=== PATIENT | male | born 1935 | race Caucasian/White ===

== ENCOUNTER 2016-09-30 03:18 | Inpatient (IN) | payer OTHER, MEDICARE ==
[~2016-09-30] VITALS: Ht 177.8 cm; Wt 79.4 kg
[~2016-09-30 03:18] MED LIST: ACCUPRIL40 M1 PO; AMLODIPINE BESYL5 M1 PO; CARDURA4 M1 PO; OMEPRAZOLE20 M3 PO; SOTALOL120 MG PO; SOTALOL80 M1 PO
--- NOTE | 2016-09-30 16:22 | Admission Core Measures ---
See Addendum Admission Meds I reviewed the following Meds: Current Medications Sig/Olinda Start time Last Medication Dose Stop Time Status Admin Acetaminophen 975 MG ONCE 09/30 0000 NR (Tylenol) 09/30 2358 Amlodipine Besylate 5 MG DAILY 10/01 1000 UNVr (Norvasc) Cefazolin Sodium 2,000 MG ONCE 09/30 0000 NR (Kefzol-Ancef Inj) 09/30 2358 Doxazosin Mesylate 4 MG DAILY 10/01 1000 UNVr (Cardura) Omeprazole 20 MG DAILY AC 10/01 07 UNVr (Prilosec) Oxycodone HCl 10 MG ONCE 09/30 0000 NR (Roxicodone) 09/30 2358 Sotalol HCl 80 MG DAILY 10/01 1000 UNVr (Betapace) Sotalol HCl 120 MG AT BEDTIME 09/30 2200 UNVr (Betapace) Acute Coronary Syndrome Inclusion Criteria ACS Diagnosis No Inpatient Core Measures LDL Reminder: If No, please order W/I first 24hr of stay Congestive Heart Failure Inclusion Criteria CHF Diagnosis No Cerebrovascular accident Inclusion Criteria CVA/TIA Diagnosis No Inpatient Core Measures Bedside Swallow Eval Reminder: If BSE failed, place ST order Antithrombotic Reminder: Order Antithrombotic Medication by end of day 2 Antithrombotic Reminder: Document Reason Antithrombotic Not ordered by end of day 2 AFIB/Flutter Reminder: If Present, add to problem list AFIB/Flutter Reminder: Order Anticoag Medication for pts with AFIB/Flutter Atherosclerosis Reminder: If Present, add to problem list LDL Reminder: If No, please order W/I first 24hr of stay PT Order Reminder: If No, please order Venous thromboembolism Inpatient Core Measures VTE Risk Factors: Surgery No [facility] VTE prophylaxis d/t No contraindications No VTE Pharm Prophylaxis d/t No contraindications Inclusion Criteria - Per Current guidelines, there needs to be overlap - treatment for the first 5 days of Warfarin therapy. - Parenteral Anticoagulation (IV or SC) needs to be - given along with Warfarin therapy. VTE Diagnosis No VTE Type NONE VTE Confirmed by (Test) NONE Problem List As ranked by this Provider includes Assessment & Plan 1. Unilateral primary osteoarthritis, right hip HOME MEDS Home Med List Amlodipine Besylate 5 MG TABLET 1 TAB PO DAILY BP (Reported) Doxazosin Mesylate (Cardura) 4 MG TABLET 1 TAB PO DAILY HEART (Reported) Omeprazole 20 MG TABLET.DR 1 TAB PO DAILY REFLUX (Reported) Quinapril HCl (Accupril) 40 MG TABLET 1 TAB PO DAILY BP (Reported) Sotalol HCl (Sotalol) 120 MG TABLET 1 TAB PO QPM BP (Reported) Sotalol HCl (Sotalol) 80 MG TABLET 1 TAB PO D BLOOD PRESSURE (Reported)
--- NOTE | 2016-09-30 16:37 | Operative Report ---
Operative/Inv Procedure Report Surgery Date: 09/30/16 Name of Procedure: Right total hip replacement Pre-Operative Diagnosis: Primary right hip DJD Post-Operative Diagnosis: Same Estimated Blood Loss: 500 Surgeon/Treatment Supervisor: DIANA DOUGLAS,CLAUDIA Asher Anesthesia: block Operative/Procedure Note Note: Description of Procedure: The patient was taken to the operating room and positively identified. After induction of spinal anesthesia and administration of appropriate pre-operative antibiotics, the patient was positioned supine on the operating room table and all bony prominences were well padded. After performing a surgical timeout, the right lower extremity was prepped and draped in the usual sterile fashion. A direct anterior approach was made to the right hip. The incision was carried sharply through superficial soft tissues to the level of the fascia. Meticulous hemostasis was maintained with Bovie electocautery. The fascia over the tensor fascia carmen muscle was opened sharply and the interval between the TFL and the sartorius was entered bluntly taking care to stay lateral to the lateral femoral cutaneous nerve. Retractors were placed around the femoral neck and the pericapsular fat was identified. The ascending branches of the lateral femoral circumflex vessels were identified and carefully coagulated. The pericapsular fat and anterior capsule were then resected. A napkin ring osteotomy was performed and the femoral head was removed without difficulty. Attention was then turned to the acetabulum. After appropriate placement of retractors, the acetabulum was exposed. Soft tissue was cleaned from the acetabular margin and notch. Overhanging osteophytes were removed and the teardrop was exposed. The acetabulum was then sequentially reamed to accept a 62 mm Blade Tritanium hemispherical solid back shell. This was impacted into place in the appropriate position and fitted with a 36 mm Trident X3 zero degree polyethylene insert. Attention was then turned to the femur. After performing the appropriate ligament releases, the proximal femur was exposed. It was then sequentially broached to accept a size 7 [place] Accolade 2 stem. This was trialed for leg length and stability. The trial component was removed and the final component was impacted into place. The trunnion was carefully cleaned and fit with a 36 mm, +2.5 Biolox delta ceramic femoral head. The hip was reduced and put through a full range of motion and found to be stable. The articular space was then irrigated with sterile saline. The periarticular soft tissues were infilitrated with Marcaine. The fascial layer was closed with interrupted #1 vicryl suture and the skin was re-approximated with interrupted 2 -0 vicryl. The skin was closed with a running 3-0 V-Lock suture. Steri-strips and a sterile dressing were applied. The patient was awakened and taken to the recovery room in satisfactory condition.
--- NOTE | 2016-09-30 17:58 | RADIOLOGY REPORT ---
EXAMINATION: XR HIP, RIGHT CLINICAL INFORMATION: Status post total right hip arthroplasty. COMPARISON: Plain films of the right hip 12/26/2010 TECHNIQUE: AP and crosstable lateral views of the right hip. FINDINGS: Multiple views of the right hip demonstrate expected postoperative changes following total right hip arthroplasty. No immediate mechanical hardware complications are identified and there are no periprosthetic fractures. Incidental note is made of brachytherapy beads in the expected region of the prostate gland. IMPRESSION: Expected postoperative changes following right hip arthroplasty. No immediate mechanical hardware complications. No periprosthetic fractures are identified.
[2016-09-30 19:48] VITALS: BP 140/68
--- NOTE | 2016-09-30 20:27 | NUR ---
ADMISSION NOTE PT ARRIVED TO FLOOR A/O X 3, ON RA DENIES PAIN OR DISCOMFORT. MOVED FROM STRETCHER TO BED WITH ASSIST X 3. FAMILY AT BEDSIDE. DRESSING TO RIGHT HIP CD+I, +CMS, +PP, AWAITING TO VOID. ORIENTED TO ROOM AND CALL VARGAS WILL MONITOR
[2016-09-30 22:00] VITALS: BP 122/56
[2016-09-30 23:51] VITALS: BP 130/58
--- NOTE | 2016-10-01 00:22 | Patient Discharge Instructions ---
Discharge Instructions General Discharge Information You were seen/treated for: R hip pain, osteoarthritis You had these procedures: Right total hip replacement Watch for these problems: fever>101, worsening pain, redness or drainage from site, No bath, but you may shower: Yes Other wound care: See preprinted instructions Diet Continue normal diet: Yes Recommended Diet: Regular Activity Activity Self Limited: Yes Activity Limited to: Weight bear as tolerated Other activity limits: Use walker for support, continue PT, weight bear as tolerated Acute Coronary Syndrome Inclusion Criteria At DC or during hospital stay patient has or had the following: ACS DIAGNOSIS No Discharge Core Measures Meds if any: Prescribed or Continued at Discharge Meds if any: NOT Prescribed or Continued at Discharge Congestive Heart Failure Inclusion Criteria At DC or during hospital stay patient has or had the following: CHF DIAGNOSIS No Discharge Core Measures Meds if any: Prescribed or Continued at Discharge Meds if any: NOT Prescribed or Continued at Discharge Cerebrovascular accident Inclusion Criteria At DC or during hospital stay patient has or had the following: CVA/TIA Diagnosis No Discharge Core Measures Meds if any: Prescribed or Continued at Discharge Meds if any: NOT Prescribed or Continued at Discharge Venous thromboembolism Inclusion Criteria VTE Diagnosis No VTE Type NONE VTE Confirmed by (Test) NONE Discharge Core Measures - Per Current guidelines, there needs to be overlap - treatment for the first 5 days of Warfarin therapy. - If discharged on Warfarin prior to 5 days of - overlap therapy, the patient will need to be - assessed for post discharge needs including - *Post discharge parental anticoagulation - *Warfarin and/or parental anticoagulation education - *Follow up date to check INR post discharge At least 5 days overlap therapy as Inpatient No Meds if any: Prescribed or Continued at Discharge Note: Overlap Therapy is Warfarin and Anticoagulant Meds if any: NOT Prescribed or Continued at Discharge
[2016-10-01] MEDS ORDERED: ASPIRIN EC325 M2 PO (00:23)
[2016-10-01] MEDS ORDERED: COLACE100 M1 PO (00:23)
[2016-10-01] MEDS ORDERED: MIRALAX17 G1 PO (00:23)
[2016-10-01] MEDS ORDERED: DILAUDID2 M1 PO (00:23)
--- NOTE | 2016-10-01 00:27 | Surgical Discharge Summary ---
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 Home Who Do You Live With? Spouse What is Your Primary Language? Belgian Review of Systems: see H&P Hospital Course Course Attending Physician: CLAUDIA ORTIZ MD Primary Care Physician: BRUNO GIRALDO MD Hospital Course: Patient was admitted to the hospital for an elective revision of left total knee replacement. Procedure was tolerated well and patient was transferred to a general surgical floor. Diet was advanced and tolerated and patient voided spontaneously. PT evaluated and treated. At time of discharge, vital signs were stable and within normal limits, neurovascular status was intact, and pain was controlled with oral pain medications. Allergies: Coded Allergies: NO KNOWN ALLERGIES (09/29/16) Disposition Summary Disposition Principal Diagnosis: Primary right hip DJD Additional Diagnosis: same, sp Right total hip replacement Discharge Disposition: home health services Discharge Instructions General Discharge Information Code Status: Full Code Patient's Diet: regular Patient's Activity: WBAT, Follow-Up Instructions/Appts: Call to be seen in Dr. Ortiz's office 6 weeks from surgery Medications at Discharge Discharge Medications: Continue taking these medications: Sotalol HCl (Sotalol) 120 MG TABLET 1 Tablet ORAL Every night Amlodipine Besylate (Amlodipine Besylate) 5 MG TABLET 1 Tablet ORAL DAILY Quinapril HCl (Accupril) 40 MG TABLET 1 Tablet ORAL DAILY Doxazosin Mesylate (Cardura) 4 MG TABLET 1 Tablet ORAL DAILY Omeprazole (Omeprazole) 20 MG TABLET.DR 1 Tablet ORAL DAILY Sotalol HCl (Sotalol) 80 MG TABLET 1 Tablet ORAL Every Day Start taking the following new medications: Aspirin (Ecotrin*) 325 MG TABLET.DR 1 Tablet ORAL TWICE DAILY Qty = 60 No Refills Docusate Sodium (Colace) 100 MG CAPSULE 1 Capsule ORAL TWICE DAILY Days = 7 No Refills Instructions: STOP TAKING IF YOU DEVELOP LOOSE STOOL/DIARRHEA Hydromorphone HCl (Dilaudid) 2 MG TABLET 1-2 Tablet ORAL EVERY 4-6 HOURS NEEDED as needed for PAIN Qty = 36 No Refills Polyethylene Glycol 3350 (Miralax) 17 GRAM POWD.PACK 1 Packet ORAL DAILY Days = 7 No Refills Instructions: dissolve in water. STOP TAKING IF YOU DEVELOP LOOSE STOOL/DIARRHEA
--- NOTE | 2016-10-01 00:42 | PN- Orthopedic ---
Subjective Subjective: POSTOP CHECK No issues per RN. Sleeping comfortably, did not wake Objective Vital Signs and I&Os Vital Signs Date Time Temp Pulse Resp B/P B/P Pulse O2 O2 Flow FiO2 Mean Ox Delivery Rate 09/30 2351 97.6 54 20 130/58 97 Room Air 09/30 2200 97.6 58 20 122/56 96 Room Air 09/30 1948 97.6 50 16 140/68 96 Room Air Intake & Output 10/01 0800 10/01 0000 09/30 1600 09/30 0800 09/30 0000 09/29 1600 Intake Total 400 Output Total 400 Balance 0 Intake, IV 400 Output, Urine 400 Patient 175 lb Weight Physical Exam: GEN: nad Sleeping comfortably, did not wake Assessment/Plan Assessment/Plan POD0 SP R ELMER, STABLE. P: PT, WBAT ASA- DVT PPX HOME MEDS PRN PAIN MEDS DC PLANNING WILL DW ATTENDING Core Measures/Miscellaneous Venous Thromboembolism VTE Risk Factors: Surgery VTE Contraindications: No Contraindications VTE Diagnosis: No VTE Type: NONE VTE Confirmed by (Test): NONE Beta Mahamed Is Beta Mahamed a Home Med? Yes If Yes, Was This Ordered Today? Yes Antibiotics Is Patient on Antibiotics? Yes If Yes: prophylaxis
[2016-10-01] MEDS ORDERED: MS CONTIN15 M2 PO (00:55)
[2016-10-01 02:25] VITALS: BP 134/58
[2016-10-01 06:30] VITALS: BP 122/60
--- NOTE | 2016-10-01 07:43 | PN- Orthopedic ---
Subjective Subjective: Patient is comfortable, no acute events overnight, he is urinating normally, he has mild complaints of right hip pain. He denies any fever or flulike illness. He has yet to get out of bed Objective Vital Signs and I&Os Vital Signs Date Time Temp Pulse Resp B/P B/P Pulse O2 O2 Flow FiO2 Mean Ox Delivery Rate 10/01 0630 97.5 56 20 122/60 96 Room Air 10/01 0225 98.3 51 20 134/58 95 Room Air 09/30 2351 97.6 54 20 130/58 97 Room Air 09/30 2200 97.6 58 20 122/56 96 Room Air 09/30 1948 97.6 50 16 140/68 96 Room Air Intake & Output 10/01 0800 10/01 0000 09/30 1600 09/30 0800 09/30 0000 09/29 1600 Intake Total 900 400 Output Total 800 400 Balance 100 0 Intake, IV 660 400 Intake, Oral 240 Number 0 Bowel Movements Output, Urine 800 400 Patient 175 lb Weight Physical Exam: Well-developed well-nourished no apparent distress. HEENT: Atraumatic, extraocular motion intact Neck: Supple, no lymphadenopathy Respiratory: No respiratory distress Extremities: No edema RIGHT lower extremity hip dressing in place, Dressing clean dry and intact Mild thigh edema No signs of infection. No shortening or rotation Hip range of motion is limited and without unexpected pain Neurovascularly intact distally Bilateral calves are supple, nontender. Neuro: Alert and oriented x3 Psych: Mood affect normal, normal memory normal judgment. Skin: Warm and dry, no rash on exposed skin Results Last 48 Hours of Labs: Labs pending this morning Assessment/Plan Assessment/Plan Postop day 1 status post right total hip arthroplasty anterior approach Physical therapy this morning, if clears, may be discharged home Aspirin for DVT prophylaxis Labs pending this morning Pain medication as needed, currently patient is comfortable Follow-up 6 weeks time VNA services tomorrow Core Measures/Miscellaneous Venous Thromboembolism VTE Risk Factors: Surgery VTE Contraindications: No Contraindications VTE Diagnosis: No VTE Type: NONE VTE Confirmed by (Test): NONE Beta Mahamed Is Beta Mahamed a Home Med? Yes If Yes, Was This Ordered Today? Yes Antibiotics Is Patient on Antibiotics? Yes If Yes: prophylaxis
[2016-10-01 08:27] LABS: ABSOLUTE BASOPHIL COUNT 0 /CUMM (0.0-0.2); ABSOLUTE EOSINOPHIL COUNT 0 /CUMM (0.0-0.7); ABSOLUTE GRANULOCYTE CT 6.5 /CUMM (1.4-6.5); ABSOLUTE LYMPH COUNT 0.6 /CUMM (1.2-3.4); ABSOLUTE MONOCYTE COUNT 0.7 /CUMM (0.10-0.60); BASOPHIL % 0.1 % (0.0-2.0); EOSINOPHIL % 0.1 % (0-5); GRANULOCYTE % 83.3 % (42.2-75.2); HEMATOCRIT 33.2 % (42-52); MEAN CORPUSCULAR HGB CONC 33.8 G/DL (33.0-37.0); MEAN CORPUSCULAR VOLUME 91.8 FL (80.0-94.0); MEAN PLATELET VOLUME 9.5 FL (7.4-10.4); RBC DISTRIBUTION WIDTH 13.1 % (11.5-14.5); RED BLOOD CELL CT 3.61 /CUMM (4.70-6.10); WHITE BLOOD CELL COUNT 7.8 /CUMM (4.8-10.8)
[2016-10-01 08:31] VITALS: BP 118/58
[2016-10-01 08:42] VITALS: BP 118/58
[2016-10-01 09:58] LABS: PLATELET COUNT 100 /CUMM (130-400)
== END 2016-10-01 11:06 | disposition home health service (06) | DRG 470 ==
LOC: 2NA 03:18 → SDA 03:18 → ENRESERV 17:44 → ENTRNSPT 19:17 → CMPTRNSPT 19:50 → 2NA 19:50 → ENPENDDIS 10-01 07:55 → 2NA 10-01 11:06
PROVIDERS: Physician Assistant Surgical; ADMIT Orthopaedic Surgery
PROC: 0SR904A Replacement of Right Hip Joint with Ceramic on Polyethylene Synthetic Substitute, Uncemented, Open Approach (ICD-10-PCS; principal; 2016-09-30)
DX: M16.11 Unilateral primary osteoarthritis, right hip (principal); I48.0 Paroxysmal atrial fibrillation; C61 Malignant neoplasm of prostate; I10 Essential (primary) hypertension; I34.0 Nonrheumatic mitral (valve) insufficiency; I35.1 Nonrheumatic aortic (valve) insufficiency; Z87.891 Personal history of nicotine dependence
CPT/HCPCS: 2NASP; 36415; 73502-RT; 82436; 88304; 97116-GO; 97161-GP; J0690; J0735; J1170; J2250; J2550; J3010; J3490; J7042